=== PATIENT | female | born 1930 | race Hispanic/Latino ===

== ENCOUNTER 2017-08-02 14:22 | Outpatient (CLI) | payer MEDICARE ==
--- NOTE | 2017-08-03 11:38 | XRay Report ---
FINAL REPORT EXAM: XR FOOT BILAT 3+V HISTORY: BILATERAL FOOT PAIN TECHNIQUE: 4 views of the left foot 4 views of the right foot PRIORS: None. 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 Plantar calcaneal bilateral bone spurring is small. Achilles enthesopathy is bilaterally large. There is diffuse osseous demineralization which limits the examination. Very subtle transverse lucency is noted in the base of the little toe metatarsal of the right foot. No such finding on the left side. This may be superimposition artifact but raises suspicion of nondisplaced fracture in the clinically appropriate setting. No evidence of dislocation. 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 Differential includes subtle nondisplaced fracture. Correlate for maximal tenderness
== END 2017-08-02 14:23 | disposition home or self-care (01) ==
LOC: SPVIMAG 14:22
PROVIDERS: ATTEND Orthopaedic Surgery Sports Medicine
DX: S92.901A Unspecified fracture of right foot, initial encounter for closed fracture (principal); M19.071 Primary osteoarthritis, right ankle and foot; M19.072 Primary osteoarthritis, left ankle and foot; X58.XXXA Exposure to other specified factors, initial encounter; Y93.89 Activity, other specified; Y92.89 Other specified places as the place of occurrence of the external cause; Y99.8 Other external cause status